=== PATIENT | male | born 1985 | race Two or more races ===

== ENCOUNTER 2018-12-09 10:06 | Emergency (ER) | payer OTHER ==
[2018-12-09 10:49] VITALS: TEMP 97.6
[2018-12-09 11:01] LABS: BASOPHILS % (AUTO) 1 % (0-3); EOSINOPHILS % (AUTO) 2 % (0-9); HEMATOCRIT 46 % (39-53); HEMOGLOBIN 15.3 gm/dl (13.5-17.7); LYMPHOCYTES % (AUTO) 23.3 % (10-50); MEAN CORPUSCULAR HEMOGLOBIN 28.1 pg (27.0-32.0); MEAN CORPUSCULAR VOLUME 85 fL (80-100); MONOCYTES % (AUTO) 8.2 % (0-12); NEUTROPHILS % (AUTO) 65.1 % (37-80)
[2018-12-09 11:26] LABS: ALBUMIN 3.5 gm/dl (3.4-5.0); BILIRUBIN,TOTAL 0.3 mg/dl (0.2-1.0); CALCIUM 8.9 mg/dl (8.5-10.1); CREATININE 0.81 mg/dl (0.80-1.30); POTASSIUM 3.9 mMol/L (3.5-5.1); THYROID STIMULATING HORMONE 1.146 uIU/ml (0.358-3.740); TOTAL PROTEIN 7.3 gm/dl (6.4-8.2)
[2018-12-09 19:19] VITALS: O2SAT 99
[2018-12-09 19:21] VITALS: BP 128/88; PULSE 71; RESP 20
== END 2018-12-09 12:30 | disposition home or self-care (01) | DRG 310 ==
LOC: ED 10:06
DX: R00.2 Palpitations (principal); R06.02 Shortness of breath; R00.1 Bradycardia, unspecified; F19.11 Other psychoactive substance abuse, in remission; R05 Cough
CPT/HCPCS: 36415; 71046; 80053; 84443; 85025; 93005; 99283